=== PATIENT | male | born 1960 | race Caucasian/White ===

== ENCOUNTER → 2018-09-11 | Day surgery (SDC) | payer OTHER ==
[~2018-09-11] MED LIST: BYSTOLIC10 MG PO; CO Q-10100 MG PO; CRESTOR10 MG PO; CYMBALTA60 MG PO; FENTANYL CITRATE/PF 100MCG/2 ML INJ ONE; GLUCAGON FOR INJ 1 MG VIAL ONE; HYDROCHLOROTHIA25 MG PO; HYDROCODONE PO; HYOSCYAMINE SULFATE 0.5 MG/ML INJ ONE; KLONOPIN0.5 MG PO; MAGNESIUM400 MG PO; MIDAZOLAM HCL 2 MG/2 ML VIAL ONE; OMEGA-31000 MG PO; OPANA10 MG PO; OXYCONTIN10 MG PO; PRISTIQ ER50 MG PO; PROPOFOL IV EMULSION 10 MG/ML 50 ML VIAL ONE; VITAMIN D31000 UNI2 PO; VITAMIN E400 UNIT PO; WELLBUTRIN XL300 MG PO
[2018-09-11 10:30] VITALS: BP 141/91
--- NOTE | 2018-09-11 18:14 | Operative Report ---
DATE OF PROCEDURE: 09/11/2018 SURGEON: James Webber MD PROCEDURE: Colonoscopy and polypectomy. INDICATION FOR COLONOSCOPY: Surveillance colonoscopy, personal history of colon polyps. MEDICATIONS: The patient was done under MAC. Please see anesthesiologist's note. PROCEDURE IN DETAIL: With the patient in left lateral decubitus position, a flexible fiberoptic Olympus colonoscope was inserted into the rectum with ease and advanced all the way to the cecum. The mucosa overlying the cecum appeared to be within normal limits. Two polyps were hot biopsied and 1 polyp was snared from the ascending colon. Two polypectomy sites were hemoclipped. One polyp was snared from the transverse colon. The descending, sigmoid, and rectum grossly appeared to be within normal limits. The scope was then retroflexed into the distal rectum and large internal hemorrhoids were noted, none of which was actively bleeding. The scope was then straightened out and was subsequently withdrawn. The patient tolerated the procedure well. IMPRESSION: 1. Ascending colon polyps x3, 1 snared and 2 hot biopsied. Two polypectomy sites were hemoclipped. 2. Transverse colon polyp snared. 3. Large internal hemorrhoids, none actively bleeding. PLAN: Follow up pathology. Initiate high-fiber, low-fat diet. Initiate high-fiber supplement. The patient might benefit from a followup colonoscopy in 3 years. MD PARMJIT Lovelace/HERB /[id number] cc: Wade Ross MD
== END | disposition home or self-care (01) ==
LOC: OR 06:27
PROVIDERS: ATTEND Internal Medicine Gastroenterology
DX: Z12.11 Encounter for screening for malignant neoplasm of colon (principal); Z86.010 Personal history of colon polyps; K21.9 Gastro-esophageal reflux disease without esophagitis; I10 Essential (primary) hypertension; E78.5 Hyperlipidemia, unspecified; I73.9 Peripheral vascular disease, unspecified; I83.90 Asymptomatic varicose veins of unspecified lower extremity; G89.29 Other chronic pain; K64.8 Other hemorrhoids; D12.2 Benign neoplasm of ascending colon; D12.3 Benign neoplasm of transverse colon
CPT/HCPCS: 45385; 93005; J1610; J1980; J2250; J2704; 45378; 45384

== ENCOUNTER → 2021-06-29 | Day surgery (SDC) | payer BC, OTHER ==
[~2021-06-29] MED LIST changes: +ASPIRIN81 MG PO; +CO Q10100 MG PO; +LIDOCAINE HCL 2% LOCAL INJ 5 ML SDV VIAL INJ ONE; +LUTEIN6 MG PO; +MOVANTIK12.5 MG PO; +OMEGA 3 1,0001 EACH PO; +PANTOPRAZOLE SO40 MG PO; +PROPOFOL IV EMULSION 10 MG/ML 20 ML VIAL ONE; -PROPOFOL IV EMULSION 10 MG/ML 50 ML VIAL ONE; +TIZANIDINE HCL4 M1 PO
[2021-06-29 09:37] LABS: BASOPHILS % 0.5 % (0.0-1.0); EOSINOPHILS # (AUTO) 0.1 (0.0-0.4); EOSINOPHILS % 1.5 % (0.0-6.0); HEMATOCRIT 43.7 % (38.2-49.6); HEMOGLOBIN 14.3 g/dL (14.0-18.0); LYMPHOCYTES # (AUTO) 0.9 (1.0-3.2); LYMPHOCYTES % 14.1 % (18.0-39.1); MEAN CORPUSCULAR HEMOGLOBIN 29.6 pg (28-32); MEAN CORPUSCULAR HGB CONC 32.7 g/dL (31-35); MEAN CORPUSCULAR VOLUME 90.5 fL (81-99); MONOCYTES # (AUTO) 0.4 (0.2-0.8); MONOCYTES % 6.6 % (4.4-11.3); NEUTROPHILS # (AUTO) 4.7 (2.1-6.9); NEUTROPHILS % 77.1 % (38.7-80.0); PLATELET COUNT 184 x10e3/uL (140-360); RED BLOOD COUNT 4.83 x10e6/uL (4.3-5.7); RED CELL DISTRIBUTION WIDTH 12.2 % (11.7-14.4)
[2021-06-29 12:00] VITALS: BP 102/66
== END | disposition home or self-care (01) ==
LOC: OR 08:16
PROVIDERS: ATTEND Internal Medicine Gastroenterology
DX: K59.03 Drug induced constipation (principal); Z86.010 Personal history of colon polyps; K58.9 Irritable bowel syndrome, unspecified; K64.8 Other hemorrhoids; K21.9 Gastro-esophageal reflux disease without esophagitis; G89.29 Other chronic pain; E78.5 Hyperlipidemia, unspecified; I73.9 Peripheral vascular disease, unspecified; I10 Essential (primary) hypertension; I25.10 Atherosclerotic heart disease of native coronary artery without angina pectoris; I25.2 Old myocardial infarction; R42 Dizziness and giddiness; F32.A Depression, unspecified; Z01.812 Encounter for preprocedural laboratory examination; Z20.822 Contact with and (suspected) exposure to COVID-19; Z79.82 Long term (current) use of aspirin; Z79.899 Other long term (current) drug therapy; Z98.61 Coronary angioplasty status
CPT/HCPCS: 36415; 45378; 85025; J1610; J1980; J2001; J2250; J2704; J3010; U0002